=== PATIENT | male | born 1935 | race Caucasian/White ===

== ENCOUNTER 2024-12-14 11:02 | Outpatient (CLI) | payer MEDICARE, BC | END 2024-12-14 11:03 | disposition home or self-care (01) | LOC: CSHWCC 11:02 | PROVIDERS: ATTEND Nurse Practitioner Family | DX: Z09 Encounter for follow-up examination after completed treatment for conditions other than malignant neoplasm (principal); Z87.2 Personal history of diseases of the skin and subcutaneous tissue | CPT/HCPCS: 99212; G0463 ==